=== PATIENT | male | born 1965 | race Caucasian/White ===

== ENCOUNTER 2017-02-01 07:15 | Observation (INO) | payer BC ==
[2017-02-06] MEDS ORDERED: ceFAZolin 2 GM/DEXTROSE 100 ML IV ONE (07:10)
[2017-02-06] MEDS ORDERED: BUPIVACAINE 0.25% 30 ML SDV ONE (08:10)
[2017-02-06] MEDS ORDERED: CHLORHEXIDINE GLUC HIBICLENS 118 ML BTL TP ONE (08:10)
[2017-02-06] MEDS ORDERED: THROMBIN (BOVINE) 5,000 UNIT VIAL TP ONE (08:10)
[2017-02-06] MEDS ORDERED: BACITRACIN 50,000 UNITS/10 ML SYR IRR ONE (08:11)
[2017-02-06] MEDS ORDERED: LR 1,000 ML IV ONE ×2 (10:07→10:44)
[2017-02-06] MEDS ORDERED: LIDOCAINE 1% 2 ML INJ ID PRN (10:44)
[2017-02-06] MEDS ORDERED: CEFAZOLIN 2 GM/DEXTROSE/100 ML BAG IV ONE (10:50)
[2017-02-06] MEDS ORDERED: MIDAZOLAM 2 MG/2 ML VIAL IVP ONE (11:10)
--- NOTE | 2017-02-06 11:13 | PDANEPAE ---
ANE History of Present Illness spinal stenosis C5/C6 ANE Past Medical History Past Medical History: high cholesterol - Cardiovascular History Hx Hypertension: No Hx Arrhythmias: No Hx Chest Pain: No Hx Coronary Artery / Peripheral Vascular Disease: No Hx CHF / Valvular Disease: No Hx Palpitations: No Cardiovascular History Comment: HIGH CHOL - Pulmonary History Hx COPD: No Hx Asthma/Reactive Airway Disease: No Hx Recent Upper Respiratory Infection: No Hx Oxygen in Use at Home: No Hx Sleep Apnea: No Sleep Apnea Screening Result - Last Documented: Positive - Neurologic History Hx Cerebrovascular Accident: No Hx Seizures: No Hx Dementia: No Neurologic History Comment: HX OF CERVICAL FUSION WITH VVC. N/T AT NOC TO ARMS AND FEET. MORE RECENTLY JUST ARMS - Endocrine History Hx Diabetes: No - Renal History Hx Renal Disorders: No - Liver History Hx Hepatic Disorders: No - Neurological & Psychiatric Hx Hx Neurological and Psychiatric Disorders: No - Cancer History Hx Cancer: Yes Cancer History Comment: SKIN CA ON FACE REMOVED - Congenital Disorder History Hx Congenital Disorders: No - GI History Hx Gastrointestinal Disorders: No - Other Health History Other Health History: WEARS GLASSES - Chronic Pain History Chronic Pain: Yes (TINGLING WHEN SLEEPING ARMS AND FEET) - Surgical History Prior Surgeries: HERNIA REPAIR. 1989 RIGHT FOOT SURGERY- BONE SPUR REPAIR. 2003 CERVICAL FUSION WITH VVC. 3 ARTHROSCOPIC SURGERIES ON LEFT ANKLE ANE Review of Systems Review of Systems: - Exercise capacity METS (RN): 4 METS ANE Patient History - Allergies Allergies/Adverse Reactions: No Known Allergies Allergy (Verified 01/19/17 15:29) - Home Medications Home Medications: Atorvastatin Calcium [Lipitor 40 mg (*)] 40 mg PO DAILY 01/12/17 [Last Taken Unknown] Multivitamins [Multivitamin (*)] 1 each PO DAILY 01/12/17 [Last Taken Unknown] - NPO status NPO Since - Liquids (Date): 02/05/17 NPO Since - Liquids (Time): 23:30 NPO Since - Solids (Date): 02/05/17 NPO Since - Solids (Time): 21:30 - Smoking Hx Smoking Status: Never smoked - Family Anes Hx Family Hx Anesthesia Complications: NONE ANE Labs/Vital Signs - Vital Signs Blood Pressure: 152/100 Heart Rate: 69 Respiratory Rate: 16 O2 Sat (%): 96 Height: 170.18 cm Weight: 86.636 kg ANE Physical Exam - Airway Neck exam: FROM Mallampati Score: Class 2 Mouth exam: normal dental/mouth exam - Pulmonary Pulmonary: no respiratory distress - Cardiovascular Cardiovascular: regular rate and rhythym - ASA Status ASA Status: II ANE Anesthesia Plan Anesthesia Plan: general endotracheal anesthesia
[2017-02-06] MEDS ORDERED: MIDAZOLAM 2 MG/2 ML VIAL ONE (11:14)
[2017-02-06] MEDS ORDERED: ROCURONIUM 50 MG/5 ML VIAL ONE (11:18)
[2017-02-06] MEDS ORDERED: LIDOCAINE 2% 5 ML SDV ONE (11:18)
[2017-02-06] MEDS ORDERED: PROPOFOL 200 MG/20 ML VIAL ONE ×2 (11:18→12:56)
[2017-02-06] MEDS ORDERED: fentaNYL 100 MCG/2 ML INJ ONE ×3 (11:18→13:47)
[2017-02-06] MEDS ORDERED: HYDROmorphONE/DILAUDID 2 MG/ML INJ ONE (11:21)
--- NOTE | 2017-02-06 11:23 | PDHPUP ---
History & Physical Update H&P update statement: This history and physical update is based on an assessment of the patient which was completed after admission or registration (within 24 hours), but prior to the surgery/procedure. H&P update: no change in patient's condition since H&P completed
[2017-02-06] MEDS ORDERED: PROMETHAZINE HCL 25 MG/ML INJ IVP PRN (12:35)
[2017-02-06] MEDS ORDERED: NALOXONE HCL 0.4 MG/ML INJ IVP PRN (12:35)
[2017-02-06] MEDS ORDERED: ONDANSETRON 4 MG/2 ML VIAL IVP PRN ×2 (12:35→14:02)
[2017-02-06] MEDS ORDERED: HYDROmorphONE/DILAUDID 1 MG/ML INJ IVP PRN (12:35)
--- NOTE | 2017-02-06 13:29 | POSTANESTH ---
Post Anesthetic Evaluation Cardiovascular Status: Normal, Stable Respiratory Status: Normal, Stable Level of Consciousness/Mental Status: Can Participate in Eval Pain Control: Adequate, Prn Tx Ordered Nausea/Vomiting Control: Adequate, Prn Tx Ordered Complications Possibly Related to Anesthesia: None Noted
--- NOTE | 2017-02-06 13:42 | POSTOPPROG ---
Post Op Note Date of Operation: 02/06/17 Surgeon: Tayo Soto Career Development Consultant: Lary Anesthesiologist: Boyd Anesthesia: GET(General Endotracheal) Pre-op Diagnosis: C5/6 stenosis Post-op Diagnosis: same Indication: Cervical stenosis with cord compression Procedure: Hardware removal C6/7, C5/6 ACDF Findings: stenosis at C5/6, solid fusion C6/7 Inf/Abcess present in the surg proc area at time of surgery?: No EBL: Minimal Complications: None Drains: Dwight Rodrigues (to bulb suction)
[2017-02-06] MEDS: fentaNYL 100 MCG/2 ML INJ IVP PRN ×3 (13:48→14:39)
--- NOTE | 2017-02-06 14:00 | SOAPPROG ---
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
[2017-02-06] MEDS ORDERED: ONDANSETRON DISINTEGRATING 4 MG TAB PO PRN (14:02)
[2017-02-06] MEDS ORDERED: MAGNESIUM HYDROXIDE 30 ML UDCUP PO PRN (14:02)
[2017-02-06] MEDS ORDERED: diphenhydrAMINE 25 MG CAP PO PRN (14:02)
[2017-02-06] MEDS ORDERED: BISACODYL 10 MG SUPP PR PRN (14:02)
[2017-02-06] MEDS ORDERED: LACTULOSE 20 GM/30 ML UDCUP PO PRN (14:02)
[2017-02-06] MEDS ORDERED: NS 1,000 ML IV SCH (14:15)
[2017-02-06] MEDS ORDERED: DIAZEPAM 10 MG/2 ML SYR ONE (14:17)
[2017-02-06] MEDS: DIAZEPAM 10 MG/2 ML SYR IVP PRN ×5 (14:20→21:35)
[2017-02-06] MEDS ORDERED: HYDROmorphONE/DILAUDID 1 MG/ML INJ ONE (15:13)
[2017-02-06] MEDS: oxyCODONE IR 5 MG TAB PO PRN ×2 (16:29→21:36)
[2017-02-06] MEDS: METHOCARBAMOL 750 MG TAB PO PRN (16:29)
[2017-02-06] MEDS: POLYETHYLENE GLYCOL 3350 17 GM PKT PO SCH ×2 (16:30→21:37)
[2017-02-06] MEDS: ACETAMINOPHEN 500 MG TAB PO SCH (21:35)
[2017-02-06] MEDS: SENNOSIDES/DOCUSATE SODIUM TAB PO SCH (21:36)
[2017-02-06] MEDS: FAMOTIDINE 20 MG TAB PO SCH (21:37)
[2017-02-06] MEDS: ceFAZolin 2 GM/DEXTROSE 100 ML IV SCH (21:38)
--- NOTE | 2017-02-06 23:06 | GOP ---
[f rep st] OPERATIVE REPORT DATE OF OPERATION: 02/06/2017 SURGEON: Tayo Soto MD NEUROSURGEON: Tayo Soto MD. MANAGER [place]: Dangelo Barth PA-C ANESTHESIA: General endotracheal. PREOPERATIVE DIAGNOSIS: Severe adjacent level degeneration and disk herniation with spinal stenosis and spinal cord compression at C5-6, status post prior C6-7 anterior cervical diskectomy and arthrode sis. Progressive neurologic symptoms. POSTOPERATIVE DIAGNOSIS: Severe adjacent level degeneration and disk herniation with spinal stenosis and spinal cord compression at C5-6, status post prior C6-7 anterior cervical diskectomy and arthrod esis. Progressive neurologic symptoms. PROCEDURE PERFORMED: Removal of anterior cervical plate and screws at C6-7 with exploration of spina l fusion and C5-6 complete anterior cervical diskectomy and arthrodesis with an 11 mm structural PEEK interbody spacer, local autograft and demineralized bone matrix. Placement of a 25 mm CastleLoc-P L nK anterior cervical plate with self-drilling screws at C5-6. Use of intraoperative microscopy and f luoroscopy. FINDINGS: ESTIMATED BLOOD LOSS: Trace. INDICATIONS: The patient is a 51-year-old man with progressive myelopathic symptoms secondary to sev ere adjacent level degeneration at the C5-6 level after undergoing a prior C6-7 anterior cervical dis kectomy and arthrodesis with instrumentation about 14 years ago. He presents now for surgical decomp ression, stabilization and removal of plate at the adjacent level. DESCRIPTION OF PROCEDURE: After informed consent was obtained, the patient was taken to the operatin g room and placed in the supine position with the head in the halter retractor system. Baseline neur omonitoring signals were obtained prior to any manipulation of his neck, including placement of the h alter retractor system. Following this, the anterior cervical area was prepped and draped in a steri le fashion. After fluoroscopic localization of the correct level, the subcutaneous and intramuscular tissues were infiltrated with local anesthesia. A horizontal incision was created approximately a c entimeter above the prior incision, and this was carried through the platysmal layer using monopolar electrocautery and carried in the avascular plane to the sternocleidomastoid and carotid sheath later ally and the strap muscles, trachea, and esophagus medially, down to the prevertebral fascia, which w as carefully incised with Metzenbaum scissors. The C6-7 level was carefully dissected out, and the prior anterior cervical plate and screws carefull y removed. The holes in the vertebral body were packed with Gelfoam. The retractor was carefully re positioned, and large osteophytes were removed at the C5-6 level. [place] distraction pins were inser emanuel, and under slight amount of distraction, a complete diskectomy was performed at the C5-6 level wi th preparation of endplates and removal of the posterior longitudinal ligament. Bilateral foraminoto mies were performed, and the wound was copiously irrigated with antibiotic irrigation. The posterior ly protruding osteophytes were also undercut, and the central canal and neural foramen thoroughly dec ompressed. Following this, meticulous hemostasis was achieved, and the remaining endplates were carefully prepar ed. An appropriately sized 11 mm structural PEEK interbody spacer packed with local autograft and de mineralized bone matrix was placed in the C5-6 disk space under fluoroscopic image guidance. The dis traction was removed, and an appropriately sized 25 mm LnK CastleLoc-P anterior cervical plate was pl aced and secured with self-drilling screws. Following verification of good position of the plate scr ews and interbody spacer using biplanar fluoroscopy, the locking mechanisms were engaged, and a drain was placed. The subcutaneous and intramuscular tissues were re-infiltrated with local anesthesia, a nd the wound was closed in a layered fashion using interrupted Vicryl sutures followed by Steri-Strip s on the skin. COMPLICATIONS: None. DISPOSITION: The patient is currently in the process of being repositioned for extubation. /[id number]/MODL
[2017-02-07] MEDS: oxyCODONE IR 5 MG TAB PO PRN ×2 (04:33→09:21)
[2017-02-07] MEDS: METHOCARBAMOL 750 MG TAB PO PRN ×2 (04:33→09:21)
[2017-02-07 04:51] LABS: % IMMATURE GRANULYOCYTES 0.4 % (0.0-1.1); ABSOLUTE IMMATURE GRANULOCYTES 0.06 10^3/uL (0.00-0.10); ADD DIFF? NO; ADD MORPH? NO; ADD SCAN? NO; ATYPICAL LYMPHOCYTE FLAG 0 (0-99); FRAGMENT RBC FLAG 0 (0-99); HEMATOCRIT 44.2 % (40.0-51.0); HEMOGLOBIN 15.6 g/dL (13.7-17.5); LEFT SHIFT FLG 0 (0-99); LIPEMIA HEMOLYSIS FLAG 90 (0-99); MEAN CELL HEMOGLOBIN 32.8 pg (27.9-34.1); MEAN CELL HEMOGLOBIN CONCENTR. 35.3 g/dL (32.4-36.7); MEAN CELL VOLUME 92.9 fL (81.5-99.8); MEAN PLATELET VOLUME 10.4 fL (8.7-11.7); PLATELET CLUMPS FLAG 10 (0-99); PLATELET COUNT 274 10^3/uL (150-400); RED BLOOD CELL COUNT 4.76 10^6/uL (4.40-6.38); RED CELL DISTRIBUTION WIDTH 12.6 % (11.5-15.2)
[2017-02-07 05:03] LABS: ANION GAP 11 mEq/L (8-16); CALCIUM 10.1 mg/dL (8.5-10.4); CARBON DIOXIDE 22 mEq/l (22-31); CHLORIDE 102 mEq/L (97-110); CREATININE 0.9 mg/dL (0.7-1.3); GLOMERULAR FILTRATION RATE > 60; GLUCOSE 144 mg/dL (70-100); POTASSIUM 4.2 mEq/L (3.5-5.2); SODIUM 135 mEq/L (134-144)
[2017-02-07] MEDS: ACETAMINOPHEN 500 MG TAB PO SCH (05:43)
[2017-02-07] MEDS: ceFAZolin 2 GM/DEXTROSE 100 ML IV SCH (05:44)
--- NOTE | 2017-02-07 07:15 | SOAPPROG ---
SOAP Progress Note Assessment/Plan: Assessment: POD #1 doing well s/p C5/6 ACDF with C6/7 hardware removal he has some mild new burning in his lateral hand and 5th finger Plan: Hard collar x 2 week,soft collar x 4 weeks after that PT/OT/ST today Once he has been seen by all therapies and he is tolerating PO, urinating, ambulating and pain controlled, he may DC home. 02/07/17 07:13 Subjective: awake,alert, pain controlled, feeling good overall, he reports new mild burning in his bilateral 5th digits and lateral hand since surgery Objective: Vital Signs Temp Pulse Resp BP Pulse Ox 36.8 C 92 16 170/96 H 96 02/07/17 04:00 02/07/17 04:00 02/07/17 04:00 02/07/17 04:00 02/07/17 04:00 Laboratory Results 02/07/17 04:41 02/07/17 04:41 02/06/17 02/07/17 02/08/17 05:59 05:59 05:59 Intake Total 1400 Output Total 465 Balance 935 JOSELYN: 45ml Neuro: 5/5 strength in upper ext sens +Lt throughout subjective mild burning in lateral hands ICD10 Worksheet Patient Problems: Problems Problem Status Onset Stenosis of cervical spine with myelopathy Acute Stenosis, cervical spine Acute - ICD10 Problem Qualifiers (1) Stenosis, cervical spine (2) Stenosis of cervical spine with myelopathy
[2017-02-07] MEDS ORDERED: ATORVASTATIN CALCIUM 40 MG TAB PO SCH (09:00)
[2017-02-07] MEDS: POLYETHYLENE GLYCOL 3350 17 GM PKT PO SCH (09:21)
[2017-02-07] MEDS: SENNOSIDES/DOCUSATE SODIUM TAB PO SCH (09:21)
[2017-02-07] MEDS: FAMOTIDINE 20 MG TAB PO SCH (09:21)
[2017-02-07 12:03] VITALS: BP 148/84; PULSE 68; RESP 14; TEMP 98.1; O2SAT 96
--- NOTE | 2017-02-07 13:47 | ASMTCMCOM ---
CM Note CM Note Notes: Pt had planned spinal surgery, PT/OT/CORE INSPECTOR clear pt for home. No CM d/c needs identified. Date Signed: 02/07/2017 01:46 PM Electronically Signed By:EMILIE Qureshi
--- NOTE | 2017-02-07 14:43 | ASDISCHSUM ---
Discharge Information Plan Status:Home with No Needs Medically Cleared to Leave: Discharge Date:02/07/2017 02:42 PM CM D/C Disposition:Home, Routine, Self-Care ADT D/C Disposition:Home, Routine, Self-Care Projected Discharge Date:02/07/2017 02:42 PM Transportation at D/C: Discharge Delay Reason: Follow-Up Date:02/07/2017 02:42 PM Discharge Slot: Final Diagnosis: Placement Information Patient Contact Information Contact Name:AMANDA Relationship: Address:[address] City:[place] Alternate Phone: State/Zip Code:[place] [address] Email: Financial Information Financial Class:HMO and PPO Plans Primary Plan Desc:[employer] [place] [employer] Primary Plan Number:[id number] Secondary Plan Desc: Secondary Plan Number: Assessment Information [facility] CM Progress Note CM Note CM Note Notes: Pt had planned spinal surgery, PT/OT/POWER DISTRIBUTOR clear pt for home. No CM d/c needs identified. Date Signed: 02/07/2017 01:46 PM Electronically Signed By:EMILIE Qureshi Intervention Information
[2017-02-08] MEDS ORDERED: ENOXAPARIN 40 MG/0.4 ML SYR SC SCH (09:00)
== END 2017-02-07 14:42 | disposition home or self-care (01) ==
LOC: F3N 02-06 09:54 → PREINTOOBSV 02-06 12:24 → F3N 02-06 15:40
PROVIDERS: ADMIT Neurological Surgery; ATTEND Neurological Surgery
PROC: 3E0V0GB Introduction of Recombinant Bone Morphogenetic Protein into Bones, Open Approach (ICD-10-PCS; principal; 2017-02-06 12:15)
PROC: 0RB30ZZ Excision of Cervical Vertebral Disc, Open Approach (ICD-10-PCS; principal; 2017-02-06 12:15)
PROC: 0RP10AZ Removal of Interbody Fusion Device from Cervical Vertebral Joint, Open Approach (ICD-10-PCS; principal; 2017-02-06 12:15)
PROC: 0RG10A0 Fusion of Cervical Vertebral Joint with Interbody Fusion Device, Anterior Approach, Anterior Column, Open Approach (ICD-10-PCS; principal; 2017-02-06 12:15)
PROC: B01B1ZZ Fluoroscopy of Spinal Cord using Low Osmolar Contrast (ICD-10-PCS; 2017-02-06 12:15)
DX: M48.02 Spinal stenosis, cervical region (principal); M50.022 Cervical disc disorder at C5-C6 level with myelopathy; Z98.1 Arthrodesis status
CPT/HCPCS: 22551; 63040; 72040; 76001; 92610; 97161; 97165; G0378; C1713; J0171; J0690; J1170; J2250; J2704; J3010